=== PATIENT | female | born 1950 | race Two or more races ===

== ENCOUNTER 2019-08-04 10:19 | Emergency (ER) | payer OTHER ==
[~2019-08-04] VITALS: Ht 162.6 cm; Wt 66.2 kg
[2019-08-04] MEDS ORDERED: METFORMIN HCL500 M3 (10:28)
[2019-08-04] MEDS ORDERED: CANDESARTAN CILE8 MG (10:29)
[2019-08-04] MEDS ORDERED: LIPITOR20 MG (10:29)
[2019-08-04] MEDS ORDERED: [UNRECOGNIZED DRUG - OTHER] (10:30)
[2019-08-04] MEDS ORDERED: KETO10TA2 PO (16:36)
[2019-08-04] MEDS ORDERED: ORPHENADRINE C100 MG PO (16:36)
== END 2019-08-04 16:51 ==
LOC: ER 10:19 → EDBD 10:27 → ER 10:27
DX: I87.2 Venous insufficiency (chronic) (peripheral) (principal); M79.662 Pain in left lower leg